=== PATIENT | male | born 1945 | race American Indian/Alaskan Native ===

== ENCOUNTER 2022-05-07 16:39 | Emergency (ER) | payer MEDICARE ==
[2022-05-07] MEDS ORDERED: ASPIRIN 81 MG TAB CHEW PO ONE (19:22)
[2022-05-07 19:46] VITALS: BP 141/77
--- NOTE | 2022-05-07 20:02 | XRay Report ---
CHEST 1 VIEW 05/07/2022 7:38 PM INDICATION / CLINICAL INFORMATION: Chest Pain. COMPARISON: 07/13/2014 FINDINGS: SUPPORT DEVICES: None. HEART / MEDIASTINUM: No significant abnormality. LUNGS / PLEURA: No significant pulmonary or pleural abnormality. No pneumothorax. ADDITIONAL FINDINGS: No significant additional findings. IMPRESSION: 1. No acute findings. Signer Name: Greg Michelle DO Signed: 05/07/2022 7:58 PM Workstation Name: [id number]
[2022-05-07 20:12] LABS: Basophils % (Auto) 0.4 % (0.0-1.8); Eosinophils % (Auto) 0.1 % (0.0-4.3); Hematocrit 47.8 % (35.5-45.6); Hemoglobin 16.3 gm/dl (11.8-15.2); Mean Corpuscular HGB Conc 34 % (32-34); Mean Corpuscular Volume 95 fl (84-94); Monocytes # (Auto) 0.4 K/mm3 (0.0-0.8); Platelet Count 367 K/mm3 (140-440); Red Blood Count 5.05 M/mm3 (3.65-5.03); Red Cell Distribution Width 14.1 % (13.2-15.2)
[2022-05-07] MEDS ORDERED: MORPHINE 4 MG/1 ML INJ IV ONE (20:26)
[2022-05-07 20:29] LABS: Alanine Aminotransferase 12 units/L (7-56); Albumin 4.2 g/dL (3.9-5); BUN/Creatinine Ratio 17; Blood Urea Nitrogen 15 mg/dL (9-20); Calcium 9.6 mg/dL (8.4-10.2); Hemolysis Index 4
--- NOTE | 2022-05-07 20:30 | Emergency Department Report ---
ED Chest Pain HPI - General Chief Complaint: Chest Pain Stated Complaint: CHEST PAIN Time Seen by Provider: 05/07/22 19:21 Source: patient, EMS Mode of arrival: Stretcher Limitations: No Limitations - History of Present Illness Initial Comments: Patient is a 76-year-old male with history of CAD, coronary stent placed 3 years ago presenting with complaint of chest pain beginning this morning. The pain began at rest. The pain is located in the left chest with radiation to the left arm. He describes the pain initially as a pressure-like sensation, now endorses sharp-like pain. He denies shortness of breath. Severity scale (0 -10): 5 - Related Data Home Medications Medication Instructions Recorded Confirmed Last Taken Aspirin [Adult Low Dose Aspirin EC] 81 mg PO 05/28/16 05/28/16 B Cmplx 4/Vit D3/C/Folic/Zinc 05/28/16 05/27/16 [Vital-D Rx Tablet] Escitalopram [Lexapro] 10 mg PO DAILY 05/28/16 05/28/16 05/27/16 Pantoprazole [Protonix] 40 mg PO QDAY 05/28/16 05/28/16 05/28/16 Primidone [Mysoline] 250 mg PO QHS 05/28/16 05/28/16 05/26/16 QUEtiapine [SEROquel] 200 mg PO 05/28/16 05/27/16 traZODone [Desyrel] 100 mg PO QHS 05/28/16 05/28/16 05/28/16 Previous Rx's Medication Instructions Recorded Last Taken Type HYDROcodone/APAP 5-325 [[place] 1 each PO Q6HR PRN #20 tablet 07/14/14 05/27/16 Rx 5/325] Allergies Allergy/AdvReac Type Severity Reaction Status Date / Time No Known Allergies Allergy Verified 05/07/22 17:26 Heart Score - HEART Score History: Slightly suspicious EKG: Normal Age: > 65 Risk factors: > 3 risk factors or hx of atherosclerotic disease Troponin: < normal limit HEART Score: 4 - EKG Read Time Time EKG Completed: 19:16 EKG Read Time: 19:20 - Critical Actions Critical Actions: 4-6 pts:12-16.6% risk of adverse cardiac event. Should be admitted ED Review of Systems ROS: Stated complaint: CHEST PAIN Other details as noted in HPI Comment: All other systems reviewed and negative Constitutional: denies: chills, fever Respiratory: denies: cough, shortness of breath, wheezing Cardiovascular: chest pain Gastrointestinal: denies: abdominal pain, nausea, diarrhea Musculoskeletal: denies: back pain, joint swelling, arthralgia Skin: denies: rash, lesions Neurological: denies: headache, weakness, paresthesias Psychiatric: denies: anxiety, depression ED Past Medical Hx - Past Medical History Hx Hypertension: Yes Hx CVA: No Hx Heart Attack/AMI: Yes (pt denies, states he has a prescription for NTG) Hx Congestive Heart Failure: No Hx Diabetes: No Hx Deep Vein Thrombosis: No Hx Pulmonary Embolism: No Hx GERD: Yes Hx Liver Disease: No Hx Renal Disease: No Hx Sickle Cell Disease: No Hx Arthritis: No Hx Headaches / Migraines: No Hx Seizures: No Hx Kidney Stones: No Hx Psychiatric Treatment: Yes Hx Asthma: No Hx COPD: No Hx Tuberculosis: No Hx Dementia: No Hx HIV: No - Surgical History Hx Coronary Stent: No Hx Open Heart Surgery: No Hx Pacemaker: No Hx Internal Defibrillator: No Hx Cholecystectomy: No Hx Appendectomy: Yes Hx Breast Surgery: No Additional Surgical History: abd - Social History Smoking Status: Current Every Day Smoker - Medications Home Medications: Home Medications Medication Instructions Recorded Confirmed Last Taken Type HYDROcodone/APAP 5-325 [[place] 1 each PO Q6HR PRN #20 tablet 07/14/14 05/27/16 Rx 5/325] Aspirin [Adult Low Dose Aspirin EC] 81 mg PO 05/28/16 05/28/16 History B Cmplx 4/Vit D3/C/Folic/Zinc 05/28/16 05/27/16 History [Vital-D Rx Tablet] Escitalopram [Lexapro] 10 mg PO DAILY 05/28/16 05/28/16 05/27/16 History Pantoprazole [Protonix] 40 mg PO QDAY 05/28/16 05/28/16 05/28/16 History Primidone [Mysoline] 250 mg PO QHS 05/28/16 05/28/16 05/26/16 History QUEtiapine [SEROquel] 200 mg PO 05/28/16 05/27/16 History traZODone [Desyrel] 100 mg PO QHS 05/28/16 05/28/16 05/28/16 History ED Physical Exam - General Limitations: No Limitations General appearance: alert, in no apparent distress - Head Head exam: Present: atraumatic, normocephalic - Respiratory Respiratory exam: Present: normal lung sounds bilaterally. Absent: respiratory distress - Cardiovascular Cardiovascular Exam: Present: regular rate, normal rhythm, normal heart sounds - GI/Abdominal GI/Abdominal exam: Present: soft. Absent: distended, tenderness - Neurological Exam Neurological exam: Present: alert, oriented X3 - Psychiatric Psychiatric exam: Present: normal affect, normal mood - Skin Skin exam: Present: warm, dry, intact, normal color ED Course Vital Signs 05/07/22 05/07/22 05/07/22 16:39 19:45 19:46 Temperature 98.4 F Pulse Rate 47 L 51 L Respiratory 16 20 Rate Blood Pressure 164/90 141/77 [Left] O2 Sat by Pulse 100 99 99 Oximetry ED Medical Decision Making - Lab Data Result diagrams: 05/07/22 19:43 05/07/22 19:43 - EKG Data -: EKG Interpreted by Me (Normal sinus rhythm. QT [address] depression or elevation.) EKG shows normal: sinus rhythm, axis Rate: bradycardia - Medical Decision Making Patient presenting to ED with complaint of chest pain that began this morning. He was given morphine and aspirin. No acute findings on chest x-ray or EKG. Initial troponin is 0.014, following troponin is undetectable. ACS unlikely. On reassessment patient is resting comfortably in bed. I discussed results with him. He is stable for discharge home with return precautions. Critical care attestation.: If time is entered above; I have spent that time in minutes in the direct care of this critically ill patient, excluding procedure time. ED Disposition Clinical Impression: Left-sided chest pain Disposition: HOME / SELF CARE / HOMELESS Is pt being admited?: No Does the pt Need Aspirin: No Condition: Stable Instructions: Nonspecific Chest Pain, Adult Referrals: [facility] [Primary Care Provider] - 3-5 Days Time of Disposition: 23:15
--- NOTE | 2022-05-08 13:31 | Electrocardiograph Report ---
[facility] Test Date: 2022-05-07 Test Time: 19:16:14 Pat Name: ANTONINO NUNES Department: Room: Gender: M Cotton Farmworker: courtney : 1945 Requested By: CHICA GOETZ Order Number: [id number] Reading MD: Arnoldo Bhat Measurements Intervals [place] Rate: 50 P: 31 [place]: 203 QRS: 35 QRSD: 91 T: 39 QT: 619 QTc: 565 Interpretive Statements Sinus rhythm Probable left atrial enlargement Prolonged QT interval No previous ECG available for comparison Electronically Signed On 05-08-2022 13:30:31 EDT by Arnoldo Bhat
== END 2022-05-08 00:06 | disposition home or self-care (01) ==
LOC: ED 16:39
DX: R07.89 Other chest pain (principal); F17.200 Nicotine dependence, unspecified, uncomplicated; I10 Essential (primary) hypertension; Z90.89 Acquired absence of other organs
CPT/HCPCS: 36415; 71045; 80053; 83690; 84484; 85025; 93005; 96374; 99284; J2270

== ENCOUNTER 2022-06-14 04:50 | Emergency (ER) | payer BC, MEDICARE ==
[2022-06-14] MEDS ORDERED: ONDANSETRON 4 MG/2 ML INJ IV ONE ×2 (05:57→08:17)
[2022-06-14] MEDS ORDERED: SODIUM CHLORIDE 0.9% 500 ML 500 ML IV ONE (05:57)
[2022-06-14] MEDS ORDERED: PANTOPRAZOLE 40 MG INJ IV ONE (05:58)
--- NOTE | 2022-06-14 05:59 | Event Note ---
Date: 06/14/22 EMS documentation not available at time of chart dictation Medical screening examination note: 76-year-old gentleman presenting with abdominal cramping with nausea and vomiting. Patient actively vomiting. Patient protecting airway. Patient moving 4 extremities. Treat symptoms, obtain appropriate laboratory studies, EKG, detailed history and physical to be performed by oncoming provider. Vital Signs 06/14/22 04:51 Temperature 98 F Pulse Rate 101 H Respiratory 18 Rate Blood Pressure 144/78 O2 Sat by Pulse 100 Oximetry
[2022-06-14 06:40] LABS: Basophils % (Auto) 0.3 % (0.0-1.8); Eosinophils % (Auto) 0.1 % (0.0-4.3); Hematocrit 48.1 % (35.5-45.6); Hemoglobin 15.9 gm/dl (11.8-15.2); Lymphocytes # (Auto) 0.8 K/mm3 (1.2-5.4); Lymphocytes % (Auto) 8.7 % (13.4-35.0); Mean Corpuscular HGB Conc 33 % (32-34); Mean Corpuscular Volume 95 fl (84-94); Monocytes # (Auto) 0.4 K/mm3 (0.0-0.8); Monocytes % (Auto) 4.3 % (0.0-7.3); Platelet Count 394 K/mm3 (140-440); Red Blood Count 5.06 M/mm3 (3.65-5.03); Red Cell Distribution Width 14.1 % (13.2-15.2)
[2022-06-14 06:59] LABS: INR 0.87 (0.87-1.13)
[2022-06-14 07:13] LABS: Alanine Aminotransferase 11 units/L (7-56); Albumin 4.6 g/dL (3.9-5); BUN/Creatinine Ratio 18; Blood Urea Nitrogen 20 mg/dL (9-20); Calcium 9.8 mg/dL (8.4-10.2); Hemolysis Index 26
--- NOTE | 2022-06-14 07:54 | Emergency Department Report ---
ED Abdominal Pain HPI - General Chief Complaint: Nausea/Vomiting/Diarrhea Stated Complaint: ABD PAIN Time Seen by Provider: 06/14/22 06:20 Source: patient Mode of arrival: Stretcher Limitations: No Limitations - History of Present Illness Initial Comments: 76-year-old male with a history of peptic ulcer disease currently on omeprazole 40 mg daily who report that he ran out of the medication about a week ago and started having nausea and coffee-ground vomiting since last night progressively getting worse. Patient reports history of alcohol drink about 1/5 around 1 PM yesterday. Patient also reports mid abdomen and left upper abdomen discomfort as well. No fever or chills noted. No other modifying or associated factors reported. - Related Data Home Medications Medication Instructions Recorded Confirmed Last Taken Aspirin [Adult Low Dose Aspirin EC] 81 mg PO 05/28/16 05/28/16 B Cmplx 4/Vit D3/C/Folic/Zinc 05/28/16 05/27/16 [Vital-D Rx Tablet] Escitalopram [Lexapro] 10 mg PO DAILY 05/28/16 05/28/16 05/27/16 Pantoprazole [Protonix] 40 mg PO QDAY 05/28/16 05/28/16 05/28/16 Primidone [Mysoline] 250 mg PO QHS 05/28/16 05/28/16 05/26/16 QUEtiapine [SEROquel] 200 mg PO 05/28/16 05/27/16 traZODone [Desyrel] 100 mg PO QHS 05/28/16 05/28/16 05/28/16 Previous Rx's Medication Instructions Recorded Last Taken Type HYDROcodone/APAP 5-325 [[place] 1 each PO Q6HR PRN #20 tablet 07/14/14 05/27/16 Rx 5/325] Omeprazole 40 mg PO DAILY 30 Days #30 cap NS 06/14/22 Unknown Rx Ondansetron [Zofran Odt] 4 mg PO Q8HR 5 Days #15 tab.rapdis 06/14/22 Unknown Rx NS Allergies Allergy/AdvReac Type Severity Reaction Status Date / Time No Known Allergies Allergy Verified 05/07/22 17:26 ED Review of Systems ROS: Stated complaint: ABD PAIN Other details as noted in HPI Comment: All other systems reviewed and negative Gastrointestinal: abdominal pain, nausea, vomiting ED Past Medical Hx - Past Medical History Previous Medical History?: Yes Hx Hypertension: Yes Hx CVA: No Hx Heart Attack/AMI: Yes (pt denies, states he has a prescription for NTG) Hx Congestive Heart Failure: No Hx Diabetes: No Hx Deep Vein Thrombosis: No Hx Pulmonary Embolism: No Hx GERD: Yes Hx Liver Disease: No Hx Renal Disease: No Hx Sickle Cell Disease: No Hx Arthritis: No Hx Headaches / Migraines: No Hx Seizures: No Hx Kidney Stones: No Hx Psychiatric Treatment: Yes Hx Asthma: No Hx COPD: No Hx Tuberculosis: No Hx Dementia: No Hx HIV: No - Surgical History Past Surgical History?: Yes Hx Coronary Stent: No Hx Open Heart Surgery: No Hx Pacemaker: No Hx Internal Defibrillator: No Hx Cholecystectomy: No Hx Appendectomy: Yes Hx Breast Surgery: No Additional Surgical History: abd - Social History Smoking Status: Current Every Day Smoker Substance Use Type: None - Medications Home Medications: Home Medications Medication Instructions Recorded Confirmed Last Taken Type HYDROcodone/APAP 5-325 [[place] 1 each PO Q6HR PRN #20 tablet 07/14/14 05/27/16 Rx 5/325] Aspirin [Adult Low Dose Aspirin EC] 81 mg PO 05/28/16 05/28/16 History B Cmplx 4/Vit D3/C/Folic/Zinc 05/28/16 05/27/16 History [Vital-D Rx Tablet] Escitalopram [Lexapro] 10 mg PO DAILY 05/28/16 05/28/16 05/27/16 History Pantoprazole [Protonix] 40 mg PO QDAY 05/28/16 05/28/16 05/28/16 History Primidone [Mysoline] 250 mg PO QHS 05/28/16 05/28/16 05/26/16 History QUEtiapine [SEROquel] 200 mg PO 05/28/16 05/27/16 History traZODone [Desyrel] 100 mg PO QHS 05/28/16 05/28/16 05/28/16 History Omeprazole 40 mg PO DAILY 30 Days #30 cap NS 06/14/22 Unknown Rx Ondansetron [Zofran Odt] 4 mg PO Q8HR 5 Days #15 tab.rapdis 06/14/22 Unknown Rx NS ED Physical Exam - General Limitations: No Limitations General appearance: alert, in no apparent distress - Head Head exam: Present: normal inspection - Eye Eye exam: Present: normal appearance Pupils: Present: normal accommodation - ENT ENT exam: Present: normal exam, normal orophraynx, other (Dry emesis and patient shirt) - Neck Neck exam: Present: normal inspection, full ROM. Absent: tenderness - Respiratory Respiratory exam: Present: normal lung sounds bilaterally. Absent: respiratory distress, accessory muscle use - Cardiovascular Cardiovascular Exam: Present: regular rate, normal rhythm, normal heart sounds - GI/Abdominal GI/Abdominal exam: Present: soft, tenderness (LUQ and epigastric tenderness to palpatin ), normal bowel sounds. Absent: rebound - Extremities Exam Extremities exam: Present: normal inspection. Absent: tenderness - Back Exam Back exam: Present: normal inspection. Absent: tenderness - Neurological Exam Neurological exam: Present: alert, oriented X3 - Psychiatric Psychiatric exam: Present: normal affect, normal mood - Skin Skin exam: Present: warm, normal color ED Course Vital Signs 06/14/22 06/14/22 06/14/22 04:51 07:52 07:58 Temperature 98 F 98.9 F Pulse Rate 101 H 69 Respiratory 18 18 Rate Blood Pressure 144/78 Blood Pressure 185/85 [Left] O2 Sat by Pulse 100 100 100 Oximetry 06/14/22 06/14/22 06/14/22 08:44 10:01 11:01 Temperature Pulse Rate Respiratory Rate Blood Pressure 163/71 176/86 Blood Pressure [Left] O2 Sat by Pulse 97 99 100 Oximetry 06/14/22 12:01 Temperature Pulse Rate Respiratory Rate Blood Pressure 188/76 Blood Pressure [Left] O2 Sat by Pulse 99 Oximetry - Reevaluation(s) Reevaluation #1: 06/14/22 07:54 Given protonix considering coffee ground emesis and with ivf ns for hydration Also given GI cocktail for symptomatic relief Morphine for pain Reevaluation #2: 06/14/22 08:18 reports active emesis while at the CT department-- given zofran 4 mg IV x 1-- Reevaluation #3: 06/14/22 12:57 CT abd noted with IMPRESSION: 1. There is wall thickening in the distal esophagus versus collapsed hiatal hernia. 2. There is no obstruction, inflammation, or free air. There are no abnormal fluid collections. 3. There is a small focal sclerotic lesion in T12 and one in the left iliac bone which are indetermi renetta. These may represent bone islands. Possibility that these could represent sclerotic metastases is considered in the differential. Nothing acute except the accidental findings -- I discuss the above with patient and need to follow up with imaging with his primary doctor. I also will discharge this patient home on zofran and Omeprazole x the next 30 days for his gastritis-- ED Medical Decision Making - Lab Data Result diagrams: 06/14/22 06:18 06/14/22 06:18 - EKG Data -: EKG Interpreted by Me EKG shows normal: sinus rhythm (60 bpm) Rate: normal - EKG Data 06/14/22 08:19 Noted with normal sinus rhythm at a rate of 60 bpm with possible left atrial enlargement and prolonged QT in this abnormal ECG. - Radiology Data CT ABDOMEN AND PELVIS WITH CONTRAST INDICATION / CLINICAL INFORMATION: abd pain. TECHNIQUE: Axial CT images were obtained through the abdomen and pelvis after 100 cc of Omnipaque [address] scans at this location are performed using CT dose reduction for ALARA by means of automated exposure control. COMPARISON: None available. FINDINGS: LOWER CHEST: There is wall thickening noted in the distal esophagus versus hiatal hernia.. LIVER: No significant abnormality. GALLBLADDER: Cholecystectomy. BILE DUCTS: No significant abnormality. PANCREAS: No significant abnormality. SPLEEN: No significant abnormality. ADRENALS: No significant abnormality. RIGHT KIDNEY / URETER: No significant abnormality. LEFT KIDNEY / URETER: No significant abnormality. STOMACH / SMALL BOWEL: No significant abnormality. COLON: Diverticulosis without acute inflammation. Changes of prior right colectomy are noted. APPENDIX: No significant abnormality. PERITONEUM: No free fluid. No free air. No fluid collection. LYMPH NODES: No significant adenopathy. AORTA / ARTERIES: No significant abnormality. IVC / VEINS: No significant abnormality. URINARY BLADDER: No significant abnormality. REPRODUCTIVE ORGANS: No significant abnormality. ADDITIONAL FINDINGS: None. SKELETAL SYSTEM: There is a sclerotic focus in the T12 vertebral body and a small sclerotic focus in the left iliac bone. These are nonspecific and could represent bone islands. Possibility that these could represent sclerotic metastases is considered in the differential diagnosis. IMPRESSION: 1. There is wall thickening in the distal esophagus versus collapsed hiatal hernia. 2. There is no obstruction, inflammation, or free air. There are no abnormal fluid collections. 3. There is a small focal sclerotic lesion in T12 and one in the left iliac bone which are indetermi renetta. These may represent bone islands. Possibility that these could represent sclerotic metastases is considered in the differential. - Medical Decision Making Here with abdominal pain--and noted with epigastric and LUQ tenderness which makes this likely alcoholic gastritis or pancreatitis and also differential could be but not limited to appendicitis, diverticulitis, cholecystitis, cholelithiasis, nephrolithiasis, duodenitis, colitis, irritable bowel syndrome, cystitis, so in order to rule this out we will go ahead and order routine acute abdomen that include CBC, CMP, urinalysis, and CT imaging of the abdomen/pelvic. Critical care attestation.: If time is entered above; I have spent that time in minutes in the direct care of this critically ill patient, excluding procedure time. ED Disposition Clinical Impression: Bone lesion Alcoholic gastritis Qualifiers: Chronicity: acute Gastritis bleeding: presence of bleeding unspecified Qualified Code(s): K29.20 - Alcoholic gastritis without bleeding Pancreatitis Qualifiers: Chronicity: acute Pancreatitis type: alcohol induced Acute pancreatitis complication: unspecified Qualified Code(s): K85.20 - Alcohol induced acute pancreatitis without necrosis or infection Abdominal pain Qualifiers: Abdominal location: epigastric Qualified Code(s): R10.13 - Epigastric pain Nausea and vomiting Qualifiers: Vomiting type: unspecified Qualified Code(s): R11.2 - Nausea with vomiting, unspecified Disposition: 01 HOME / SELF CARE / HOMELESS Is pt being admited?: No Does the pt Need Aspirin: No Condition: Stable Instructions: Gastritis, Adult, [id number], Abdominal Pain, Adult, E asy-to-Read, Nausea and Vomiting, Adult, [id number] Additional Instructions: It is very important to cut back or quit alcohol drink as this could be worsening your symptoms or overall health Call and schedule a follow up with your doctor in the next 3-5 days for progress -- Please do not forget to discuss with primary doctor the accidental bone lesion findings on your CT abd/pel for follow up imaging Call or return to emergency room if your symptoms worsen Omeprazole injury renewed at 40 mg daily for the next 30 days You are also being given Zofran 4 mg every 6-8 hours as needed for nausea or vomiting. Prescriptions: Omeprazole 40 mg PO DAILY 30 Days #30 cap NS Ondansetron [Zofran Odt] 4 mg PO Q8HR 5 Days #15 tab.darrian WAYNE Time of Disposition: 13:07
[2022-06-14] MEDS ORDERED: ALUM-MAG HYDROXIDE-SIMETHICONE 200-200-20MG/5ML ORAL LIQD 30 ML PO ONE (07:56)
[2022-06-14] MEDS ORDERED: LIDOCAINE VISCOUS 2% 15 ML ORAL LIQD PO ONE (07:56)
[2022-06-14] MEDS ORDERED: ONDANSETRON 4 MG/2 ML INJ ONE (08:18)
[2022-06-14 08:49] LABS: Bilirubin,Urine NEG (Negative); Blood,Urine SM (Negative); Color,Urine Yellow (Yellow); Protein,Urine <15 mg/dL mg/dL (Negative); Urobilinogen,Urine < 2.0 mg/dL (<2.0)
[2022-06-14 08:53] LABS: Mucus,Urine 1+ /HPF
--- NOTE | 2022-06-14 08:57 | Cat Scan Report ---
CT ABDOMEN AND PELVIS WITH CONTRAST INDICATION / CLINICAL INFORMATION: abd pain. TECHNIQUE: Axial CT images were obtained through the abdomen and pelvis after 100 cc of Omnipaque [address] scans at this location are performed using CT dose reduction for ALARA by means of automated exposure control. COMPARISON: None available. FINDINGS: LOWER CHEST: There is wall thickening noted in the distal esophagus versus hiatal hernia.. LIVER: No significant abnormality. GALLBLADDER: Cholecystectomy. BILE DUCTS: No significant abnormality. PANCREAS: No significant abnormality. SPLEEN: No significant abnormality. ADRENALS: No significant abnormality. RIGHT KIDNEY / URETER: No significant abnormality. LEFT KIDNEY / URETER: No significant abnormality. STOMACH / SMALL BOWEL: No significant abnormality. COLON: Diverticulosis without acute inflammation. Changes of prior right colectomy are noted. APPENDIX: No significant abnormality. PERITONEUM: No free fluid. No free air. No fluid collection. LYMPH NODES: No significant adenopathy. AORTA / ARTERIES: No significant abnormality. IVC / VEINS: No significant abnormality. URINARY BLADDER: No significant abnormality. REPRODUCTIVE ORGANS: No significant abnormality. ADDITIONAL FINDINGS: None. SKELETAL SYSTEM: There is a sclerotic focus in the T12 vertebral body and a small sclerotic focus in the left iliac bone. These are nonspecific and could represent bone islands. Possibility that these c ould represent sclerotic metastases is considered in the differential diagnosis. IMPRESSION: 1. There is wall thickening in the distal esophagus versus collapsed hiatal hernia. 2. There is no obstruction, inflammation, or free air. There are no abnormal fluid collections. 3. Th ere is a small focal sclerotic lesion in T12 and one in the left iliac bone which are indeterminate. These may represent bone islands. Possibility that these could represent sclerotic metastases is cons idered in the differential. Signer Name: Archie Luo MD Signed: 06/14/2022 8:52 AM Workstation Name: [id number]
[2022-06-14 12:46] VITALS: BP 188/76
--- NOTE | 2022-06-14 15:23 | Electrocardiograph Report ---
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
== END 2022-06-14 13:26 | disposition home or self-care (01) ==
LOC: ED 04:50
DX: K29.20 Alcoholic gastritis without bleeding (principal); K85.90 Acute pancreatitis without necrosis or infection, unspecified; M89.9 Disorder of bone, unspecified; R10.12 Left upper quadrant pain; R11.2 Nausea with vomiting, unspecified; I11.9 Hypertensive heart disease without heart failure; K21.9 Gastro-esophageal reflux disease without esophagitis; Z98.890 Other specified postprocedural states; Z90.89 Acquired absence of other organs; F17.290 Nicotine dependence, other tobacco product, uncomplicated
CPT/HCPCS: 36415; 74177; 80053; 81001; 83690; 84484; 85025; 85610; 93005; 96374; 96375; 96376; 99284; C9113; J2405; J7040; Q9967; 80320; G0480